=== PATIENT | female | born 1980 | race Asian ===

== ENCOUNTER 2023-04-26 08:49 | Emergency (ER) | payer BC ==
--- NOTE | 2023-04-26 09:13 | ED Physician Documentation ---
PD HPI NVD - Stated complaint Stated Complaint: N/V/D - Chief complaint Chief Complaint: Abd Pain - History obtained from History obtained from: Patient, Family - History of Present Illness Timing - onset: How many days ago (8) Timing - duration: Days (8) Timing - details: Abrupt onset, Still present Associated symptoms: Abdominal pain, Near syncope / syncope, Loss of appetite Contributing factors: Travel. No: Sick contact Improved by: Vomiting, BM Worsened by: Moving, Position, Palpation Similar symptoms before: Has not had sx before Recently seen: Clinic - Additonal information Additional information: Brenda Ty is a 42-year-old female with a history of lupus who arrived here from [place] last night. She is presenting to the emergency department today with 8 days of nausea vomiting and diarrhea associated with abdominal pain. She has not been able to control her diarrhea with use of Imodium. She is feeling weak. She developed pain in her hands consistent with what she has had with lupus flare previously and this developed today. She has come to the emergency department for evaluation and treatment. She has been in to see her primary care doctor at the beginning of the week and she is talked to her lupus doctor on the phone who has recommended she start a Medrol Dosepak. Review of Systems Constitutional: denies: Fever, Chills Eyes: denies: Decreased vision Ears: denies: Ear pain Nose: denies: Rhinorrhea / runny nose, Congestion Throat: denies: Sore throat Cardiac: denies: Chest pain / pressure, Palpitations Respiratory: denies: Dyspnea, Cough GI: reports: Abdominal Pain, Nausea, Vomiting, Diarrhea : denies: Dysuria, Frequency Skin: denies: Rash Musculoskeletal: reports: Extremity pain, Joint pain. denies: Neck pain, Back pain Neurologic: reports: Generalized weakness. denies: Focal weakness, Numbness PD PAST MEDICAL HISTORY - Past Medical History Past Medical History: No Cardiovascular: None Respiratory: None Neuro: Migraines Endocrine/Autoimmune: Systemic lupus erythematosus GI: GERD COTTON WASHER: None : None HEENT: None Psych: None Musculoskeletal: None Derm: None - Past Surgical History Past Surgical History: Yes General: Cholecystectomy - Present Medications Home Medications: Ambulatory Orders Medication Instructions Recorded Confirmed Azelastine HCl 2 spray NS BID 04/26/23 04/26/23 Ergocalciferol (Vitamin D2) 1,250 mcg PO DAILY 04/26/23 04/26/23 [Vitamin D2] Fludrocortisone [Florinef] 0.1 mg ORAL DAILY 04/26/23 04/26/23 Furosemide [Lasix] 20 mg PO DAILY 04/26/23 04/26/23 Loperamide [Imodium] 2 mg PO QID PRN 04/26/23 04/26/23 Mecobalamin [B12 Active] 1,000 mcg PO DAILY 04/26/23 04/26/23 Montelukast [Singulair] 10 mg PO QPM 04/26/23 04/26/23 Omeprazole Magnesium 20 mg PO DAILY 04/26/23 04/26/23 Ondansetron Odt [Zofran Odt] 4 mg TL Q6H PRN 04/26/23 04/26/23 Promethazine [Phenergan] 25 mg PO Q6H PRN #10 tab 04/26/23 Sumatriptan Succinate [Imitrex] 50 mg PO DAILY PRN 04/26/23 04/26/23 Triamcinolone 0.5% Cream [Kenalog 1 applic TOP BID 04/26/23 04/26/23 0.5% Cream] - Allergies Allergies/Adverse Reactions: Allergies Allergy/AdvReac Type Severity Reaction Status Date / Time No Known Drug Allergies Allergy Verified 04/26/23 08:54 - Social History Does the pt smoke?: No Smoking Status: Never smoker Does the pt drink ETOH?: No Does the pt have substance abuse?: No - Immunizations Immunizations are current?: Yes PD ED PE NORMAL - Vitals Vital signs reviewed: Yes (normal ) - General General: Alert and oriented X 3, No acute distress, Well developed/nourished - HEENT HEENT: Atraumatic, PERRL, EOMI - Neck Neck: Supple, no meningeal sign, No bony TTP - Cardiac Cardiac: RRR, No murmur - Respiratory Respiratory: No respiratory distress, Clear bilaterally - Abdomen Abdomen: Normal bowel sounds, Soft, Non distended, No organomegaly, Other (LUQ tenderness with garding no rebound tenderness or referred tenderness) - Back Back: No CVA TTP, No spinal TTP - Derm Derm: Normal color, Warm and dry, No rash - Extremities Extremities: No deformity, No edema - Neuro Neuro: Alert and oriented X 3, core blower operator 2-12 intact, No motor deficit, No sensory deficit, Normal speech Eye Opening: Spontaneous Motor: Obeys Commands Verbal: Oriented GCS Score: 15 - Psych Psych: Normal mood, Normal affect Results - Vitals Vitals: Vital Signs - 24 hr 04/26/23 04/26/23 04/26/23 08:56 10:02 11:11 Temperature 36.5 C Heart Rate 77 70 65 Respiratory 18 18 14 Rate Blood Pressure 104/63 100/65 95/56 L O2 Saturation 100 96 98 04/26/23 13:00 Temperature 36.5 C Heart Rate 66 Respiratory 16 Rate Blood Pressure 100/60 O2 Saturation 98 Oxygen O2 Source Room air - Labs Labs: Laboratory Tests 04/26/23 04/26/23 04/26/23 08:05 09:15 09:15 WBC 3.9 L RBC 4.05 L Hgb 10.6 L Hct 32.6 L MCV 80.5 L MCH 26.2 L MCHC 32.5 RDW 14.2 Plt Count 191 MPV 10.3 Neut # (Auto) Not Reportable Lymph # (Auto) Not Reportable [place] # (Auto) Not Reportable Eos # (Auto) Not Reportable Baso # (Auto) Not Reportable Absolute Nucleated RBC Not Reportable Total Counted 100 Band Neuts % (Manual) 0 Abnorm Lymph % (Manual) 0 Nucleated RBC % Not Reportable Neutrophils # (Manual) 1.8 Lymphocytes # (Manual) 1.7 Monocytes # (Manual) 0.2 Eosinophils # (Manual) 0.2 Basophils # (Manual) 0.0 Differential Comment MANUAL DIFFERENTIAL Platelet Estimate NORMAL (130-450,000) Platelet Morphology NORMAL APPEARANCE RBC Morph Micro Appear NORMAL APPEARANCE ESR Sodium 137 Potassium 3.3 L Chloride 104 Carbon Dioxide 29 Anion Gap 4.0 L BUN 9 Creatinine 0.8 Estimated GFR (MDRD) 79 L Glucose 87 Calcium 9.4 Total Bilirubin 0.5 AST 31 ALT 38 Alkaline Phosphatase 80 C-Reactive Protein Total Protein 7.2 Albumin 4.2 Globulin 3.0 Albumin/Globulin Ratio 1.4 Lipase < 10 L Urine Color YELLOW Urine Clarity HAZY Urine pH 6.0 Ur Specific [place] 1.025 Urine Protein NEGATIVE Urine Glucose (UA) NEGATIVE Urine Ketones NEGATIVE Urine Occult Blood NEGATIVE Urine Nitrite NEGATIVE Urine Bilirubin NEGATIVE Urine Urobilinogen 1 (NORMAL) Ur Leukocyte Esterase TRACE H Urine RBC None Seen Urine WBC 4-5 Ur Squamous Epith Cells MANY Squamous H Urine Bacteria Moderate H Urine Mucus Moderate Strands Ur Microscopic Review INDICATED Urine Culture Comments NOT INDICATED Urine HCG, Qual NEGATIVE 04/26/23 04/26/23 09:15 09:15 WBC RBC Hgb Hct MCV MCH MCHC RDW Plt Count MPV Neut # (Auto) Lymph # (Auto) [place] # (Auto) Eos # (Auto) Baso # (Auto) Absolute Nucleated RBC Total Counted Band Neuts % (Manual) Abnorm Lymph % (Manual) Nucleated RBC % Neutrophils # (Manual) Lymphocytes # (Manual) Monocytes # (Manual) Eosinophils # (Manual) Basophils # (Manual) Differential Comment Platelet Estimate Platelet Morphology RBC Morph Micro Appear ESR 20 Sodium Potassium Chloride Carbon Dioxide Anion Gap BUN Creatinine Estimated GFR (MDRD) Glucose Calcium Total Bilirubin AST ALT Alkaline Phosphatase C-Reactive Protein < 0.5 Total Protein Albumin Globulin Albumin/Globulin Ratio Lipase Urine Color Urine Clarity Urine pH Ur Specific [place] Urine Protein Urine Glucose (UA) Urine Ketones Urine Occult Blood Urine Nitrite Urine Bilirubin Urine Urobilinogen Ur Leukocyte Esterase Urine RBC Urine WBC Ur Squamous Epith Cells Urine Bacteria Urine Mucus Ur Microscopic Review Urine Culture Comments Urine HCG, Qual - Rads (name of study) CT ab/pel with Relevant Findings:: Prelim report reviewed (Impression: No imaging explanation is found for the patient's presenting symptoms. Negative for acute diverticulitis. No dilated loops of small bowel are seen. 2.6 cm of a left ovarian cyst seen which is regarded to be within physiologic limits.), EMP independent interpretation of test Procedures - IVC sono (time) 0930 Bedside IVC sono: IVC measures (cm) (1.62), Euvolemia PD Medical Decision Making - ED course Complexity details: reviewed results, re-evaluated patient, considered differential, d/w patient, d/w family ED course: 42-year-old female with 8 days of nausea vomiting diarrhea and abdominal pain has been hydrating adequately with water and on interrogation of the inferior vena cava with POCUS she is found to be euvolemic. I suspect electrolyte abnormality for the complaint of weakness and the abdominal pain we will investigate with contrast CT scan examination of the abdomen and pelvis. Here in the emergency department she is placed on maintenance fluid and given a dose of Inapsine and Dilaudid. Her Zofran seems to have been inadequate to control her vomiting. She has had luck previously with phenergan and she would like to try this at home. Departure - Departure Disposition: 01 Home, Self Care Clinical Impression: Gastroenteritis, Hypokalemia due to excessive gastrointestinal loss of potassium Condition: Stable Instructions: Diet High Potassium Dc, ED Gastroenteritis Bacterial Follow-Up: [facility] [Provider Group] Prescriptions: Promethazine [Phenergan] 25 mg PO Q6H PRN #10 tab PRN Reason: Nausea / Vomiting Comments: Brenda, today it looks like you have persistent diarrhea and nausea. The diarrhea has been present for more than 5 days and despite the fact that we do not have a specimen to culture we will start some "empiric" antibiotic. In addition I have prescribed some Phenergan to use for the nausea. Medications have been E scribed to the [facility] in [place]. Today we found your potassium was low and provided some supplementation with IV potassium. I recommend foods high in potassium. If you are unable to control your symptoms or they worsen return to the ED. Discharge Date/Time: 04/26/23 13:50
[2023-04-26] MEDS ORDERED: DROPERIDOL 5 MG/2 ML VIAL IVP STA (09:32)
[2023-04-26] MEDS ORDERED: HYDROmorphone 1 MG/ML CARPUJECT IVP STA (09:32)
[2023-04-26] MEDS ORDERED: SODIUM CHLORIDE 0.9% 1,000 ML IV STA (09:33)
[2023-04-26 09:41] LABS: BASOPHILS % (AUTO) 0.5 %; EOSINOPHILS % (AUTO) 5.1 %; HCT - HEMATOCRIT 32.6 % (37.0-47.0); HGB - HEMOGLOBIN 10.6 g/dL (12.0-16.0); LYMPHOCYTES % (AUTO) 40.6 %; MEAN CORPUSCULAR HEMOGLOBIN 26.2 pg (27.0-31.0); MEAN CORPUSCULAR HGB CONC 32.5 g/dL (32.0-36.0); MEAN CORPUSCULAR VOLUME 80.5 fL (81.0-99.0); MEAN PLATELET VOLUME 10.3 fL (7.9-10.8); MONOCYTES % (AUTO) 7.9 %; NEUTROPHILS % (AUTO) 45.9 %; PLT - PLATELET COUNT 191 10^3/uL (130-450); RED BLOOD COUNT 4.05 10^6/uL (4.20-5.40); RED CELL DISTRIBUTION WIDTH 14.2 % (12.0-15.0); WHITE BLOOD COUNT 3.9 x10^3/uL (4.8-10.8)
[2023-04-26 09:43] LABS: BILIRUBIN,URINE NEGATIVE (NEGATIVE); GLUCOSE, URINE (UA) NEGATIVE (NEGATIVE); KETONES,URINE (UA) NEGATIVE (NEGATIVE); LEUKOCYTE ESTERASE, URINE TRACE (NEGATIVE); NITRITE,URINE NEGATIVE (NEGATIVE); OCCULT BLOOD,URINE NEGATIVE (NEGATIVE); PROTEIN,URINE NEGATIVE (NEGATIVE); UROBILINOGEN,URINE 1 (NORMAL) E.U./dL (NORMAL)
[2023-04-26 09:44] LABS: ABNORMAL LYMPHS % (MANUAL) 0 %; BAND NEUTROPHILS % (MANUAL) 0 %
[2023-04-26 09:46] LABS: CLARITY,URINE HAZY (CLEAR); HCG UR QUAL NEGATIVE
[2023-04-26 09:50] LABS: ALBUMIN 4.2 g/dL (3.2-5.5); ALBUMIN/GLOBULIN RATIO 1.4 (1.0-2.2); ALKALINE PHOSPHATASE 80 IU/L (42-121); ALT ALANINE AMINOTRANSFERASE 38 IU/L (10-60); AST ASPARTATE AMINOTRANSFERASE 31 IU/L (10-42); BILIRUBIN,TOTAL 0.5 mg/dL (0.2-1.0); BUN - BLOOD UREA NITROGEN 9 mg/dL (6-20); CALCIUM 9.4 mg/dL (8.5-10.3); CARBON DIOXIDE - CO2 29 mmol/L (21-32); CHLORIDE 104 mmol/L (101-111); CREATININE 0.8 mg/dL (0.6-1.3); GFR - MDRD 79 (>89); GLUCOSE 87 mg/dL (74-104); POTASSIUM 3.3 mmol/L (3.5-4.5); SODIUM 137 mmol/L (135-145); TOTAL PROTEIN 7.2 g/dL (6.4-8.9)
[2023-04-26 09:51] LABS: BACTERIA,URINE Moderate /HPF (None Seen); MUCUS,URINE Moderate Strands; RBC,URINE None Seen /HPF (0-5); SQUAMOUS EPITHELIAL CELL,UR MANY Squamous (<= Few)
[2023-04-26 09:52] LABS: LIPASE < 10 U/L (11-82)
[2023-04-26 10:21] LABS: DIFFERENTIAL COMMENT MANUAL DIFFERENTIAL; EOSINOPHILS # (MANUAL) 0.2 10^3/uL (0-0.7); LYMPHOCYTES # (MANUAL) 1.7 10^3/uL (1.5-3.5); LYMPHOCYTES % (MANUAL) 43 %; MONOCYTES # (MANUAL) 0.2 10^3/uL (0.0-1.0); NEUTROPHILS # (MANUAL) 1.8 10^3/uL (1.5-6.6); PLATELET ESTIMATE, MANUAL NORMAL (130-450,000) (NORMAL); PLATELET MORPHOLOGY NORMAL APPEARANCE (NORMAL); RBC MORPHOLOGY (MULTIPLE) NORMAL APPEARANCE (NORMAL)
[2023-04-26] MEDS ORDERED: POTASSIUM CHLOR 10 MEQ/100 ML 10 MEQ/100 ML BAG IV ONE (10:24)
[2023-04-26] MEDS ORDERED: ONDANSETRON 4 MG/2 ML VIAL IVP STA (10:55)
[2023-04-26 11:13] VITALS: O2SAT 98
[2023-04-26] MEDS ORDERED: iohexoL-300 100 ML VIAL IVP ONE (12:50)
--- NOTE | 2023-04-26 13:01 | CT Report ---
PROCEDURE: ABDOMEN/PELVIS W INDICATIONS: LUQ abdominal pain CONTRAST: Omni 300 100ml TECHNIQUE: After the administration of IV contrast, 5 mm thick sections acquired from the diaphragms to the symp hysis. 5 mm thick coronal and sagittal reformats were acquired. For radiation dose reduction, the f ollowing was used: automated exposure control, adjustment of mA and/or kV according to patient size. COMPARISON: None. FINDINGS: Image quality: Excellent. Lung bases and heart: Unremarkable. Liver: No solid mass. Gallbladder and biliary tree: Cholecystectomy. Mild extrahepatic and intrahepatic biliary ductal dila tation can be seen, which is considered to be within normal limits for a postcholecystectomy patient. Spleen: No splenomegaly. Pancreas: No pancreatic ductal dilation. Adrenals: No adrenal nodule. Kidneys and ureters: No hydronephrosis. No renal cystic lesion which requires follow up. No solid mas s. Bowel and peritoneum: Bariatric surgery can be seen. In this patient with this given history, scrutiny is given to the sigmoid colon. No findings of diver ticulitis can be seen. A few scattered diverticula can be seen. No significant colonic abnormality is seen. No dilated loops of small bowel are seen. Lymph nodes: No central or retroperitoneal adenopathy. Vessels: No infrarenal aortic aneurysm. PELVIS Reproductive organs: The uterus demonstrates an unremarkable appearance for age. No adnexal masses ar e seen. A 2.6 cm left ovarian cyst is seen, which is considered to be within physiologic limits. Bladder: No abnormal wall thickening, accounting for underdistension. Pelvic lymph nodes: No pelvic adenopathy by size criteria. Bones: No aggressive osseous abnormality. Minimal to mild levoconvex scoliotic curvature is seen. Other: No significant ventral or inguinal hernia. IMPRESSION: No imaging explanation is found for the patient's presenting symptoms. Negative for active diverticulitis. No dilated loops of small bowel are seen. 2.6 of a left ovarian cyst seen, which is regarded to be within physiologic limits. Additional findings: Bariatric surgery Status post cholecystectomy Mild biliary prominence, which is considered to be within normal limits for postcholecystectomy patie nt. Reviewed by: Alo Espinoza MD on 04/26/2023 12:00 PM [facility] Approved by: Alo Espinoza MD on 04/26/2023 12:00 PM [facility] Station ID: [id number]
[2023-04-26 13:45] VITALS: BP 100/60
== END 2023-04-26 13:50 | disposition home or self-care (01) ==
LOC: ED 08:49
DX: K52.9 Noninfective gastroenteritis and colitis, unspecified (principal); E87.6 Hypokalemia; Z79.899 Other long term (current) drug therapy
CPT/HCPCS: 36415; 74177; 80053; 81001; 81025; 83690; 85025; 85651; 86140; 96365; 96375; 99284; 99285; J1170; Q9967; 81003; 87086; 87507